=== PATIENT | male | born 1945 | race Caucasian/White ===

== ENCOUNTER 2023-05-19 19:40 | Outpatient (REF) | payer MEDICARE, SELFPAY ==
[2023-05-19 21:19] LABS: HCT 47.6 % (40.0-50.0); MCH 30.8 pg (27.0-33.0); MCHC 33.6 % (32.0-36.0); MCV 92 fL (80-95); MPV 12.6 fL (8.0-11.0); Platelet Count 202 10^3/uL (130-400); RDW-SD 43.7 fL; WBC 5.07 10^3/uL (4.4-10.8)
[2023-05-19 21:52] LABS: ALT 37 U/L (16-63); AST 22 U/L (15-37); Albumin 3.6 g/dL (3.4-5.0); Alkaline Phosphatase 68 U/L (46-116); Anion Gap 9.7 mmol/L (3-11); BUN 22 mg/dL (7-18); Bilirubin, Total 0.4 mg/dL (0.2-1.0); CO2 26.3 mmol/L (21.0-32.0); CREATININE 1.1 mg/dL (0.70-1.30); Calcium 8.8 mg/dL (8.5-10.1); Calculated LDL 130 mg/dL (<100); Chloride 104 mmol/L (98-107); Cholesterol 206 mg/dL (<200); Estimated GFR 69.57 (mL/min/1.73m2); Glucose 189 mg/dL (74-106); HDL Cholesterol 44 mg/dL (40-60); Potassium 3.7 mmol/L (3.5-5.1); Sodium 140 mmol/L (136-145); Total Protein 6.9 g/dL (6.4-8.2); Triglyceride 160 mg/dL (<150)
[2023-05-20 10:24] LABS: Hemoglobin A1C 6.3 % (<5.7)
[2023-05-20 21:13] LABS: PSA, Screening 3.3 ng/mL (<=6.5)
== END 2023-05-19 19:41 | disposition home or self-care (01) ==
LOC: NCHCN 19:40
PROVIDERS: PCP Nurse Practitioner Family; Visit Provider Nurse Practitioner Family
DX: R06.02 Shortness of breath (principal); R73.09 Other abnormal glucose; R79.89 Other specified abnormal findings of blood chemistry; Z12.5 Encounter for screening for malignant neoplasm of prostate
CPT/HCPCS: 80053; 80061; 84153; 85027; 83036

== ENCOUNTER → 2023-05-27 02:06 | Outpatient (CLI) | payer MEDICARE, SELFPAY ==
--- NOTE | 2023-05-27 | ETT_ITS ---
APPROVED REPORT Exam: Exercise Treadmill Patient Location: Out-Patient Room/Bed: Stress Nurse: Rhea Mazariegos RN Ordering Provider:JUSTINE RAMÍREZ, Contact Number: [phone] BMI: 30.82 Baseline Rhythm: Sinus Bradycardia Indications: SOB Medical History Medical History: Cardiovascular disease, diabetes, HLD, SHARIFA, anxiety Cardiac Medications: Sildenafil, pravastatin, advair Allergies: None known Cardiac Risk Factors: Family hx, CVD, former smoker, HLD, Asthma Previous Cardiac Procedures: None Pretest Chest Pain Characteristics: None Exercise History: Physically active Physical Disabilities: None Lung Sounds: Clear to auscultation Heart Sounds: Regular Stress Test Details Test: Exercise stress testing was performed using a Nima protocol. Rest Stress HR Resting HR Supine: 58 bpm Max Heart Rate (APMHR): 144 bpm Resting HR Standin bpm Target HR (85% APMHR): 122 bpm Max HR Achieved: 140 bpm % of APMHR: 97 Recovery HR: 81 bpm HR response to stress: Normal HR response to stress BP Resting BP Supine: 122/78 mmHg Resting BP Standin/70 mmHg Max BP: 184/76 mmHg Recovery BP: 124/74 mmHg BP response to stress: Normal blood pressure response to stress. ECG Resting ECG: Sinus Bradycardia Ectopy: None Stress ECG: Sinus Tachycardia ST Change: No significant ST segment changes noted Arrhythmia: Occasional PAC's Recovery ECG: Sinus Rhythm Recovery ST Change: No significant ST segment changes noted Recovery Arrhythmia: Occasional PAC's, couplet Clinical Reason for Termination: Target HR Achieved, Fatigue Stress Symptoms: General Fatigue, mod SOB Exercise duration: 08 min08 sec Highest Stage Reached: Stage 3: 3.4 mph at 14% grade. Exercise capacity: 10.16 METs Angina Score: Non-Limiting Burgess Treadmill Score: 7.2 Rate Pressure Product: [id number] Stress ECG Conclusion 1. Electrocardiogram was within normal limits 2. Patient exercised on a Nima protocol and completed a workload of 10.16 METS 3. Normal heart rate and blood pressure response to exercise. The patient achieved 97% of predicted heart rate for age 4. There was no electrocardiographic evidence of myocardial ischemia with exercise 5. There were no significant dysrhythmias Burgess Treadmill Score is 7.2 which is Low risk. Stress Test Summary STAGE Time (mins) Speed (mph) Grade (%) HR BP SpO2 SYMPTOMS METS Supine 58 122/78 Standing 74 124/70 1 3 1.7 10 103 144/68 92 4.5 2 6 2.5 12 119 160/72 92 Mod SOB 7 3 9 3.4 14 138 Mod SOB 10 1 min recovery 110 184/76 95 Mod SOB 3 min recovery 89 150/70 Resolving SOB 6 min recovery 81 124/74 96 Resolved SOB
== END ==
PROVIDERS: PCP Nurse Practitioner Family; Visit Provider Nurse Practitioner Family
DX: R06.02 Shortness of breath (principal)
CPT/HCPCS: 93016; 93018; 93017

== ENCOUNTER 2023-12-09 13:00 | Outpatient (REF) | payer MEDICARE, SELFPAY ==
[2023-12-09 15:01] LABS: Anion Gap 10.2 mmol/L (3-11); BUN 15 mg/dL (7-18); CO2 24.8 mmol/L (21.0-32.0); CREATININE 0.8 mg/dL (0.70-1.30); Calculated LDL 127 mg/dL (<100); Chloride 108 mmol/L (98-107); Cholesterol 197 mg/dL (<200); Estimated GFR 91.15 (mL/min/1.73m2); Glucose 119 mg/dL (74-106); HDL Cholesterol 52 mg/dL (40-60); Potassium 4.3 mmol/L (3.5-5.1); Sodium 143 mmol/L (136-145); Triglyceride 91 mg/dL (<150)
[2023-12-09 15:09] LABS: Hemoglobin A1C 6.1 % (<5.7)
== END 2023-12-09 13:01 | disposition home or self-care (01) ==
LOC: NCHCN 13:00
PROVIDERS: PCP Nurse Practitioner Family; Visit Provider Nurse Practitioner Family
DX: E78.5 Hyperlipidemia, unspecified (principal); R73.03 Prediabetes
CPT/HCPCS: 80048; 80061; 83036